=== PATIENT | male | born 1980 | race Caucasian/White ===

== ENCOUNTER 2017-07-15 10:55 | Emergency (ER) | payer OTHER ==
[~2017-07-15] VITALS: Ht 172.7 cm; Wt 72.6 kg
[2017-07-15 11:06] VITALS: BP 133/78
--- NOTE | 2017-07-15 11:13 | ED CARDIAC/CP/PALPITATIONS ---
History of Present Illness General Chief Complaint: Chest Pain Stated Complaint: CHEST PAIN SOB Source: patient Exam Limitations: no limitations Vital Signs & Intake/Output Vital Signs & Intake/Output Vital Signs Date Time Temp Pulse Resp B/P B/P Pulse O2 O2 Flow FiO2 Mean Ox Delivery Rate 07/15 1106 96.0 72 22 133/78 100 Room Air Room Air Allergies Coded Allergies: NO KNOWN ALLERGIES (07/15/17) Triage Note: TRIAGE: 36 Y/O MALE PRESENTS C/O 3/10 LEFT SIDED CHEST PAIN X 2 HOURS. REPORTS TOOK (1) 81MG ASPIRIN PRIOR TO ARRIVAL. ALSO C/O SOB - ROOM AIR SPO2 100%, RESP RATE 22. TO ROOM 6 FROM EKG [facility]. Triage Nurses Notes Reviewed? yes Onset: Gradual Duration: constant Timing: single episode today Location: substernal Radiation: no radiation Nitro Today/Relief: no nitro taken today Aspirin Today: 81 mg x 1 HPI: Patient is a 36-year-old male with an unremarkable past medical history presents emergency room that when he woke up today he was in his normal state of health after drinking 2 cups of coffee patient had a gradual onset of left-sided chest wall pain with bilateral hand paresthesia palpitations and chills. Patient tried eating PANcakes and states symptoms were not better Patient denies any fevers arm pain jaw pain nausea vomiting leg swelling hemoptysis history of DVT or PE or recent travel recent surgeries Patient denies any illicit drug use denies any cardiac history or family history of cardiac before the age of 50. Patient does smoke cigarettes denies any significant alcohol use (Mainor Victor) Past History Travel History Traveled to [place] past 21 day No Medical History Any Pertinent Medical History? 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 No (Mainor Victor) Review of Systems Review of Systems Constitutional: Reports: see HPI, chills. EENTM: Reports: no symptoms. Respiratory: Reports: see HPI. Cardiovascular: Reports: see HPI, chest pain, palpitations. GI: Reports: no symptoms. Genitourinary: Reports: no symptoms. Musculoskeletal: Reports: no symptoms. Skin: Reports: no symptoms. Neurological/Psychological: Reports: see HPI, paresthesia. Hematologic/Endocrine: Reports: no symptoms. Immunologic/Allergic: Reports: no symptoms. All Other Systems: Reviewed and Negative (Mainor Victor) Physical Exam Physical Exam General Appearance: no apparent distress, alert, comfortable Head: atraumatic Eyes: Bilateral: normal appearance, PERRL. Ears, Nose, Throat: normal pharynx, normal ENT inspection Neck: normal inspection, supple, full range of motion Respiratory: normal breath sounds, no respiratory distress, LEFT CHEST WALL PAIN Cardiovascular: regular rate/rhythm Peripheral Pulses: 2+ radial (R) Gastrointestinal: normal bowel sounds, soft, non-tender Extremities: normal inspection, normal capillary refill, normal range of motion Neurologic/Psych: no motor/sensory deficits, awake, alert, oriented x 3, normal gait Skin: intact, normal color, warm/dry Core Measures ACS in differential dx? Yes CVA/TIA Diagnosis No Sepsis Present: No Sepsis Focused Exam Completed? No (Mainor Victor) Progress Differential Diagnosis: AMI, aortic dissection, atrial fibrillation, cholecystitis, CHF/pulm edema, costochondritis, hyperkalemia, hypovolemia, hyperthyroid, hyperventilation, intracranial hemorrhage, musculoskeletal pain, myocarditis, pancreatitis, pericarditis, pneumonia, pneumothorax, PSVT, pulmonary embolism, PUD/GERD, PVCs/PACs, respiratory failure, rib fracture, sepsis, unstable angina, V-fib/V-Tach, WPW syndrome Plan of Care: Orders Procedure Date/time Status THYROID STIMULATING HORMONE 07/15 1119 Complete TROPONIN LEVEL 07/15 1119 Complete FREE T4 07/15 1119 Complete COMPREHENSIVE METABOLIC PANEL 07/15 1119 Complete CBC WITHOUT DIFFERENTIAL 07/15 1119 Complete EKG 07/15 1056 Active Laboratory Tests 07/15/17 1127: Anion Gap 11, Estimated GFR > 60, BUN/Creatinine Ratio 16.3, Glucose 91, Calcium 9.6, Total Bilirubin 0.4, AST 24, ALT 26, Alkaline Phosphatase 61, Troponin I < 0.01, Total Protein 6.8, Albumin 4.4, Globulin 2.4, Albumin/Globulin Ratio 1.8, TSH 0.825, Free T4 1.04, CBC w Diff NO MAN DIFF REQ, RBC 4.18 L, MCV 92.4, MCH 31.0, MCHC 33.6, RDW 12.2, MPV 6.3 L, Gran % 72.9, Lymphocytes % 18.2 L, Monocytes % 6.6, Eosinophils % 1.8, Basophils % 0.5, Absolute Granulocytes 8.6 H, Absolute Lymphocytes 2.1, Absolute Monocytes 0.8 H, Absolute Eosinophils 0.2 , Absolute Basophils 0.1 PERC ZERO no suspicion of DVT or PE It was noted to me that after nursing staff obtain blood work that he was anxious from the needle when he was given Atarax patient was reevaluated and has improvement of his symptoms currently is resting comfortably EKG unremarkable chest x-ray unremarkable patient has been in 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 CXR Impression: no acute abnormality, no infiltrates, normal size heart Initial ED EKG: normal p-waves, normal QRS complex, normal sinus rhythm, 71 BPM, NSR Comments: PATIENT: ANJELICA GALINDO PRESENT AGE: 36 PATIENT ACCOUNT NO: [id number] : 82 LOCATION: [facility] ORDERING PHYSICIAN: Mainor OVALLE SERVICE DATE: 07/15/17 EXAM TYPE: RAD - XRY-CHEST XRAY, TWO VIEWS EXAMINATION: XR CHEST CLINICAL INFORMATION: Chest pain. COMPARISON: Chest done on 11/24/2013. TECHNIQUE: 2 views of the chest were obtained. FINDINGS: No significant abnormality is noted involving the heart, lungs, mediastinum, bony thorax or soft tissues. IMPRESSION: Unremarkable examination, unchanged since 11/24/2013. DICTATED BY: April Lua MD DATE/TIME DICTATED:07/15/171213 MEDICAL DATA ENTRY CLERK:KATIANA DATE/TIME TRANSCRIBED:07/15/171213 (Shanti OVALLE,Mainor) Departure Departure Disposition: HOME OR SELF CARE Condition: Stable Clinical Impression Primary Impression: Chest pain Secondary Impressions: Palpitation Referrals: Patient Has No Primary Care Dr (PCP/Family) Alcantar MD,W Cb Additional Instructions: As discussed please follow-up with your [facility] and please provide THEM with all copies of imaging x-ray and EKG provided to the emergency room, next week if symptoms still continue follow-up with mirror machine feeder Dr. Alcantar. If symptoms worsen or if he develop new concerning symptom return to emergency room Departure Forms: Customer Survey General Discharge Information (Mainor Victor) PA/COMMUNITY SERVICE COORDINATOR Co-Sign Statement Statement: ED Attending supervision documentation- [] I saw and evaluated the patient. I have also reviewed all the pertinent lab results and diagnostic results. I agree with the findings and the plan of care as documented in the PA's/COMMUNITY SERVICE COORDINATOR's documentation. [x] I have reviewed the ED Record and agree with the PA's/COMMUNITY SERVICE COORDINATOR's documentation. [] Additions or exceptions (if any) to the PAs/COMMUNITY SERVICE COORDINATOR's note and plan are summarized below: [] (Giovanni Avalos DO) Critical Care Note Critical Care Note Critical Care Time: non-applicable (Mainor Victor)
[2017-07-15 11:35] LABS: ABSOLUTE BASOPHIL COUNT 0.1 /CUMM (0.0-0.2); ABSOLUTE EOSINOPHIL COUNT 0.2 /CUMM (0.0-0.7); ABSOLUTE GRANULOCYTE CT 8.6 /CUMM (1.4-6.5); ABSOLUTE LYMPH COUNT 2.1 /CUMM (1.2-3.4); ABSOLUTE MONOCYTE COUNT 0.8 /CUMM (0.10-0.60); BASOPHIL % 0.5 % (0.0-2.0); EOSINOPHIL % 1.8 % (0-5); HEMATOCRIT 38.6 % (42-52); MEAN CORPUSCULAR HGB CONC 33.6 G/DL (33.0-37.0); MEAN CORPUSCULAR VOLUME 92.4 FL (80.0-94.0); MEAN PLATELET VOLUME 6.3 FL (7.4-10.4); PLATELET COUNT 304 /CUMM (130-400); RBC DISTRIBUTION WIDTH 12.2 % (11.5-14.5); RED BLOOD CELL CT 4.18 /CUMM (4.70-6.10); WHITE BLOOD CELL COUNT 11.7 /CUMM (4.8-10.8)
[2017-07-15 11:43] LABS: GRANULOCYTE % 72.9 % (42.2-75.2)
--- NOTE | 2017-07-15 12:19 | RADIOLOGY REPORT ---
EXAMINATION: XR CHEST CLINICAL INFORMATION: Chest pain. COMPARISON: Chest done on 11/24/2013. TECHNIQUE: 2 views of the chest were obtained. FINDINGS: No significant abnormality is noted involving the heart, lungs, mediastinum, bony thorax or soft tissues. IMPRESSION: Unremarkable examination, unchanged since 11/24/2013.
== END 2017-07-15 13:18 ==
LOC: ERH 10:55
PROVIDERS: Physician Assistant
DX: R07.89 Other chest pain (principal); R00.2 Palpitations
CPT/HCPCS: 71046; 93005; 93010